=== PATIENT | female | born 1985 | race Caucasian/White ===

== ENCOUNTER → 2025-01-09 14:38 | Outpatient (CLI) | payer OTHER, SELFPAY | PROVIDERS: Family Provider Student in an Organized Health Care Education/Training Program; PCP Student in an Organized Health Care Education/Training Program; Referring Provider Student in an Organized Health Care Education/Training Program; Visit Provider Student in an Organized Health Care Education/Training Program | DX: M25.521 Pain in right elbow (principal) | CPT/HCPCS: 95885; 95886; 95912 ==